=== PATIENT | female | born 1945 | race Hispanic/Latino ===

== ENCOUNTER 2020-04-27 12:16 | Outpatient (CLI) | payer MEDICARE ==
--- NOTE | 2020-04-27 15:21 | XRay Report ---
CHEST 2 VIEWS INDICATION / CLINICAL INFORMATION: Shortness of breath. COMPARISON: None available. FINDINGS: SUPPORT DEVICES: None. HEART / MEDIASTINUM: The heart size and pulmonary vasculature are normal. LUNGS / PLEURA: The lungs are mildly hyperinflated, but clear. No pneumothorax. ADDITIONAL FINDINGS: No significant additional findings. IMPRESSION: Mild hyperinflation of the lungs without other significant abnormality. Signer Name: Sid Loera MD Signed: 04/27/2020 3:16 PM Workstation Name: [id number]
== END 2020-04-27 12:17 | disposition home or self-care (01) ==
LOC: SPVIMAG 12:16
PROVIDERS: ATTEND Internal Medicine
DX: J98.11 Atelectasis (principal)
CPT/HCPCS: 71046